=== PATIENT | female | born 1980 | race Caucasian/White ===

== ENCOUNTER 2017-06-11 06:34 | Emergency (ER) | payer MEDICAID, OTHER ==
--- NOTE | 2017-06-11 07:09 | EDM.PDOC ---
ED HPI GENERAL MEDICAL PROBLEM - General Chief Complaint: LOGISTICS LEAD Problem Stated Complaint: D AND C BLEEDING Time Seen by Provider: 06/11/17 06:56 Source of Information: Reports: Patient, RN Notes Reviewed History Limitations: Reports: No Limitations - History of Present Illness INITIAL COMMENTS - FREE TEXT/NARRATIVE: 37-year-old female presents emergency department day complaint of vaginal bleeding, she is a 4 para 2 recently underwent a D&C 2 weeks ago for a miscarrage she thinks she was about 8 week IUP she did have a couple bouts of intermittent bleeding postoperatively but today at approximately 4:00 this morning started having heavy vaginal bleeding with clots has went to 5 or 6 pads feels lightheaded had a couple near syncopal events denies any fevers shortness of breath or chest pain abd Pain Score (Numeric/FACES): 4 - Related Data Allergies Allergy/AdvReac Type Severity Reaction Status Date / Time No Known Allergies Allergy Verified 06/11/17 06:47 Home Meds: Home Meds Pnv with Ca,No.72/Iron/Fa [Pnv Plus Multivit Tab] 1 each PO DAILY 08/02 [History] Hydrocodone/Acetaminophen [Hydrocodon-Acetaminophen 5-325] 1 each PO ASDIRECTED PRN 06/11/17 [History] Past Medical History LOGISTICS LEAD History: Reports: , Spontaneous Other OB/BYN History: G- 4 p-2 - Past Surgical History Female Surgical History: Reports: D&C Other Female Surgeries/Procedures: 05-30-2017 Social & Family History - Tobacco Use Smoking Status *Q: Never Smoker ED ROS GENERAL - Review of Systems Review Of Systems: See Below Constitutional: Denies: Fever, Chills HEENT: Reports: No Symptoms Respiratory: Reports: No Symptoms Cardiovascular: Reports: No Symptoms GI/Abdominal: Reports: No Symptoms : Reports: Irregular Menses Musculoskeletal: Reports: No Symptoms Skin: Reports: No Symptoms Neurological: Reports: No Symptoms ED EXAM, RENAL/ - Physical Exam Exam: See Below Text/Narrative:: General: Female, not in any distress, alert and oriented x3 HEENT: head is atraumatic normocephalic, eyes pupils equal round reactive to light, sclera clear no conjunctivitis appreciated. Ears tympanic membranes clear and dean landmarks and light reflex are present bilaterally canals are clear. Nose no septal deviation, nares are clear, no blood present. Mouth mucosa is moist and pink no erythema or exudate noted in soft palate, tongue is midline uvula is midline, dentition is intact. Neck: Supple no thyromegaly no tracheal deviation. Nodes: Cervical nodes subclavicular nodes nontender no palpable lymphadenopathy noted. Lungs: clear to auscultation bilaterally with symmetrical respirations, no adventitious noise appreciated. CV: Regular rate and rhythm S1 and S2 appreciated no murmurs rubs or gallops noted. Abdomen: Soft, nontender, no palpable masses or organomegaly appreciated, no distention no guarding bowel sounds are present, . Neuro: Cranial nerves II through XII grossly intact Skin: Warm and dry, intact Extremities: No lower extremity edema appreciated, pedal pulse is +2. Vaginal exam presence of nursing staff cervical os was identified is still open active bleeding and clots protruding from the os large amount of clot and blood in the vaginal vault, no tenderness to the exam no fissures or tears noted Course - Vital Signs Last Recorded V/S: Last Vital Signs Temp 97.9 F 06/11/17 06:52 Pulse 83 06/11/17 08:48 Resp 18 06/11/17 08:48 BP 128/71 06/11/17 08:48 Pulse Ox 99 06/11/17 08:48 - Orders/Labs/Meds Orders: Active Orders 24 hr Category Date Time Status Pelvis Non OB Comp [US] Stat Exams 06/11/17 07:12 Taken Lactated Ringers [Ringers, Lactated] 1,000 ml Med 06/11/17 07:15 Active IV ASDIRECTED Medication Orders Lactated Ringer's (Ringers, Lactated) 1,000 mls @ 999 mls/hr IV ASDIRECTED ROLAND Last Admin: 06/11/17 07:13 Dose: 999 mls/hr Labs: Laboratory Tests 06/11/17 06/11/17 06/11/17 Range/Units 07:10 07:10 07:10 WBC 12.5 H (4.5-11.0) K/uL RBC 3.95 (3.30-5.50) M/uL Hgb 11.4 L (12.0-15.0) g/dL Hct 35.0 L (36.0-48.0) % MCV 89 (80-98) fL MCH 29 (27-31) pg MCHC 33 (32-36) % Plt Count 291 (150-400) K/uL Neut % (Auto) 81 H (36-66) % Lymph % (Auto) 12 L (24-44) % [place] % (Auto) 6 (2-6) % Eos % (Auto) 1 L (2-4) % Baso % (Auto) 0 (0-1) % PT 10.3 (9.5-12.0) sec INR 0.96 (0.80-1.20) APTT 25.4 L (27.0-36.0) sec Sodium 136 L (140-148) mmol/L Potassium 4.3 (3.6-5.2) mmol/L Chloride 104 (100-108) mmol/L Carbon Dioxide 25 (21-32) mmol/L Anion Gap 11.3 (5.0-14.0) mmol/L BUN 17 (7-18) mg/dL Creatinine 0.9 (0.6-1.0) mg/dL Est Cr Clr Drug Dosing TNP Estimated GFR (MDRD) > 60 (>60) Glucose 105 (74-106) mg/dL Calcium 8.2 L (8.5-10.1) mg/dL Total Bilirubin 0.4 (0.2-1.0) mg/dL AST 12 L (15-37) U/L ALT 24 (12-78) U/L Alkaline Phosphatase 48 (46-116) U/L Total Protein 6.3 L (6.4-8.2) g/dL Albumin 3.4 (3.4-5.0) g/dL Globulin 2.9 (2.3-3.5) g/dL Albumin/Globulin Ratio 1.2 (1.2-2.2) HCG, Quant (0-6) mIU/mL Urine Color Urine Appearance Urine pH (4.5-8.0) Ur Specific [place] (1.008-1.030) Urine Protein (NEGATIVE) mg/dL Urine Glucose (UA) (NEGATIVE) mg/dL Urine Ketones (NEGATIVE) mg/dL Urine Occult Blood (NEGATIVE) Urine Nitrite (NEGATIVE) Urine Bilirubin (NEGATIVE) Urine Urobilinogen (NORMAL) mg/dL Ur Leukocyte Esterase (NEGATIVE) Urine RBC (0-5) Urine WBC (0-5) Ur Epithelial Cells Amorphous Sediment Urine Bacteria Urine Mucus Urine HCG, Qual 06/11/17 06/11/17 06/11/17 Range/Units 07:10 08:48 08:48 WBC (4.5-11.0) K/uL RBC (3.30-5.50) M/uL Hgb (12.0-15.0) g/dL Hct (36.0-48.0) % MCV (80-98) fL MCH (27-31) pg MCHC (32-36) % Plt Count (150-400) K/uL Neut % (Auto) (36-66) % Lymph % (Auto) (24-44) % [place] % (Auto) (2-6) % Eos % (Auto) (2-4) % Baso % (Auto) (0-1) % PT (9.5-12.0) sec INR (0.80-1.20) APTT (27.0-36.0) sec Sodium (140-148) mmol/L Potassium (3.6-5.2) mmol/L Chloride (100-108) mmol/L Carbon Dioxide (21-32) mmol/L Anion Gap (5.0-14.0) mmol/L BUN (7-18) mg/dL Creatinine (0.6-1.0) mg/dL Est Cr Clr Drug Dosing Estimated GFR (MDRD) (>60) Glucose (74-106) mg/dL Calcium (8.5-10.1) mg/dL Total Bilirubin (0.2-1.0) mg/dL AST (15-37) U/L ALT (12-78) U/L Alkaline Phosphatase (46-116) U/L Total Protein (6.4-8.2) g/dL Albumin (3.4-5.0) g/dL Globulin (2.3-3.5) g/dL Albumin/Globulin Ratio (1.2-2.2) HCG, Quant 1958 H (0-6) mIU/mL Urine Color Red Urine Appearance Slightly cloudy Urine pH 8.0 (4.5-8.0) Ur Specific [place] 1.015 (1.008-1.030) Urine Protein 30 H (NEGATIVE) mg/dL Urine Glucose (UA) Normal (NEGATIVE) mg/dL Urine Ketones Negative (NEGATIVE) mg/dL Urine Occult Blood Large (NEGATIVE) Urine Nitrite Negative (NEGATIVE) Urine Bilirubin Negative (NEGATIVE) Urine Urobilinogen Normal (NORMAL) mg/dL Ur Leukocyte Esterase Small (NEGATIVE) Urine RBC Packed H (0-5) Urine WBC 0-5 (0-5) Ur Epithelial Cells Not seen Amorphous Sediment Not seen Urine Bacteria Not seen Urine Mucus Not seen Urine HCG, Qual Positive H Meds: Medications Generic Name Dose Route Start Last Admin Trade Name Saqib PRN Reason Stop Dose Admin Lactated Ringer's 1,000 mls @ 999 mls/hr 06/11/17 07:15 06/11/17 07:13 Ringers, Lactated IV 999 mls/hr ASDIRECTED ROLAND Administration Departure - Departure Time of Disposition: 09:18 Disposition: DC/Tfer to Acute Hospital 02 Condition: Good Clinical Impression: Vagina bleeding - Discharge Information Referrals: PCP,None [Primary Care Provider] - Forms: ED Department Discharge - My Orders Last 24 Hours: My Active Orders 06/11/17 07:12 Pelvis Non OB Comp [US] Stat 06/11/17 07:15 Lactated Ringers [Ringers, Lactated] 1,000 ml IV ASDIRECTED - Assessment/Plan Last 24 Hours: My Active Orders 06/11/17 07:12 Pelvis Non OB Comp [US] Stat 06/11/17 07:15 Lactated Ringers [Ringers, Lactated] 1,000 ml IV ASDIRECTED Plan: Assessment Acuity = acute Site and laterality = vaginal bleeding post D&C procedure complicated with recent estimate 8 weeks Etiology = unclear etiology Manifestations = lightheadedness Location of injury = Home Lab values = WBC elevated 12.5 consistent leukocytosis hemoglobin low 11.4 consistent with normochromic anemia INR normal at 0.96 beta-hCG elevated at 1958 urinalysis positive hCG and packed red blood cells consistent hematuria ultrasound demonstrates retained products of conception Plan Called and discussed the case with Dr. Ta LOGISTICS LEAD data conversion analyst at [facility] who kindly accepted the patient in transport, she will be transported via EMS ground to IVs are in place she has been given 1 L of fluids This note was dictated using [employer] voice recognition software please call with any questions.
[2017-06-11] MEDS ORDERED: Lactated Ringers 1,000 ML IV SCH (07:15)
[2017-06-11 09:41] VITALS: BP 117/61
== END 2017-06-11 09:50 ==
LOC: JP.ED 06:34
DX: N93.9 Abnormal uterine and vaginal bleeding, unspecified (principal); Z79.899 Other long term (current) drug therapy
CPT/HCPCS: 36415; 76856; 80053; 81001; 81025; 84702; 85025; 85610; 85730; 96360; 99285; J7120; 99284

== ENCOUNTER 2018-11-22 18:35 | Emergency (ER) | payer MEDICAID ==
[2018-11-22] MEDS ORDERED: Sodium Chloride 0.9% 10 ML Syringe FLUSH PRN ×2 (19:54)
[2018-11-22] MEDS ORDERED: Ketorolac 60 MG/2 ML SDV IM ONE (20:38)
--- NOTE | 2018-11-22 22:27 | CRLCT ---
INDICATION: Abdominal pain TECHNIQUE: CT abdomen and pelvis without contrast. COMPARISON: Ob ultrasound performed the same date FINDINGS: Lower chest: Small right pleural effusion. Liver: Unremarkable. Spleen: Unremarkable. Pancreas: Unremarkable. Gallbladder and bile ducts: Unremarkable. Adrenal glands: Unremarkable. Kidneys: Unremarkable. GI tract: Unremarkable. Vascular structures: Unremarkable. Lymph nodes: Unremarkable. Miscellaneous: Small fat containing umbilical hernia. Pelvic Organs: 6.5 x 7.3 by 7.4 cm heterogeneous mass in the left adnexa. Moderate amount of hemoperitoneum. Bones: Unremarkable for age. IMPRESSION: Findings highly suspicious for a ruptured left-sided ectopic . Moderate amount of hemoperitoneum. These findings were discussed with Dr. Gilliland at 10:25 p.m. on November 22, 2018. Small right pleural effusion. Please note that all CT scans at this facility use dose modulation, iterative reconstruction, and/or weight-based dosing when appropriate to reduce radiation dose to as low as reasonably achievable. Dictated by Lydia Mcintosh MD @ Nov 22 2018 10:13PM Signed by Dr. Lydia Mcintosh @ Nov 22 2018 10:24PM
--- NOTE | 2018-11-22 22:29 | CRLUS ---
INDICATION: Pelvic pain, vaginal bleeding, 10 weeks 6 days TECHNIQUE: Ultrasound OB pelvis transabdominal. Real-time dean-scale imaging of the pelvis was performed. COMPARISON: None FINDINGS: No intrauterine is identified. There is a heterogeneous mass in the left adnexa measuring 10.1 x 7.7 x 5.0 cm. There is moderate amount of fluid in the lower abdomen and pelvis. The uterus measures 10.5 x 5.8 x 4.7. The ovaries are normal in size. Simple appearing cysts are seen on both ovaries. IMPRESSION: No intrauterine identified. Heterogeneous mass in the left adnexa with moderate amount of fluid in the abdomen and pelvis. Findings are highly concerning for a ruptured left-sided ectopic . These findings were discussed with Dr. Gilliland at 10:25 p.m. on November 22, 2018. Dictated by Lydia Mcintosh MD @ Nov 22 2018 10:20PM Signed by Dr. Lydia Mcintosh @ Nov 22 2018 10:28PM
--- NOTE | 2018-11-22 22:43 | EDM.PDOC ---
ED HPI GENERAL MEDICAL PROBLEM - General Chief Complaint: Abdominal Pain Stated Complaint: ABDOMINAL PAIN Time Seen by Provider: 11/22/18 19:45 Source of Information: Reports: Patient History Limitations: Reports: No Limitations - History of Present Illness INITIAL COMMENTS - FREE TEXT/NARRATIVE: 38-year-old female is estimated to be 6 weeks . She has been receiving her care from [facility] in [place]. Her quantitative hCGs have been erratic and there is been some question about a possible ectopic . Her ultrasound was done on November 05 which was inconclusive and did not see any intraoral or extrauterine . She started having cramping in her lower abdomen about 3 PM this afternoon and later became more severe and mainly on the left side. She took hydrocortisone for her without much relief. She is presently G7, P2, SAB 5. No GI or symptoms. No prior abdominal surgeries. Blood type is A+. e left lower abd Pain Score (Numeric/FACES): 9 - Related Data Allergies Allergy/AdvReac Type Severity Reaction Status Date / Time No Known Allergies Allergy Verified 11/22/18 19:14 Home Meds: Home Meds Pnv with Ca,No.72/Iron/Fa [Pnv Plus Multivit Tab] 1 each PO DAILY 08/02 [History] Hydrocodone/Acetaminophen [Hydrocodon-Acetaminophen 5-325] 1 each PO ASDIRECTED PRN 06/11/17 [History] Past Medical History HEENT History: Reports: Impaired Vision BOAT LABORER History: Reports: , Spontaneous , Other (See Below) Other BOAT LABORER History: G- 4 p-2. partial molar - Infectious Disease History Infectious Disease History: Reports: Chicken Pox - Past Surgical History Female Surgical History: Reports: D&C Other Female Surgeries/Procedures: 05-30-2017 Social & Family History - Tobacco Use Smoking Status *Q: Never Smoker - Caffeine Use Caffeine Use: Reports: Coffee - Recreational Drug Use Recreational Drug Use: No ED ROS GENERAL - Review of Systems Review Of Systems: See Below Constitutional: Denies: Fever, Chills, Weakness HEENT: Reports: No Symptoms Respiratory: Reports: No Symptoms Cardiovascular: Reports: No Symptoms GI/Abdominal: Reports: Abdominal Pain, Distension. Denies: Black Stool, Bloody Stool, Nausea : Denies: Discharge, Flank Pain, Frequency, Hematuria, Urgency Musculoskeletal: Reports: No Symptoms ED EXAM, GI/ABD - Physical Exam Exam: See Below Exam Limited By: No Limitations General Appearance: Alert, Mild Distress Respiratory/Chest: No Respiratory Distress, Lungs Clear, Normal Breath Sounds Cardiovascular: Normal Peripheral Pulses, Regular Rate, Rhythm, No Edema GI/Abdominal Exam: Distended, Tender, Other (Generalized tenderness of the abdomen maximal in the left lower quadrant.). No: Guarding, Rigid, Rebound (Female) Exam: Adnexal Tenderness. No: Vaginal Bleeding Course - Vital Signs Last Recorded V/S: Last Vital Signs Temp 37.1 C 11/23/18 00:01 Pulse 91 11/23/18 00:01 Resp 15 11/23/18 00:01 BP 133/65 11/23/18 00:01 Pulse Ox 95 11/23/18 00:01 - Orders/Labs/Meds Orders: Active Orders 24 hr Category Date Time Status Peripheral IV Care [RC] . DIRECTED Care 11/22/18 19:58 Active PATIENT RETYPE [BBK] Stat Lab 11/22/18 20:23 Results RED BLOOD CELLS LP [BBK] Stat Lab 11/22/18 20:23 Results TYPE AND SCREEN [BBK] Stat Lab 11/22/18 20:23 Results Peripheral IV Insertion Adult [OM.PC] Urgent Oth 11/22/18 19:54 Ordered Labs: Laboratory Tests 11/22/18 11/22/18 11/22/18 Range/Units 20:03 20:03 20:23 WBC 19.4 H (4.5-11.0) K/uL RBC 3.86 (3.30-5.50) M/uL Hgb 11.2 L (12.0-15.0) g/dL Hct 33.9 L (36.0-48.0) % MCV 88 (80-98) fL MCH 29 (27-31) pg MCHC 33 (32-36) % Plt Count 337 (150-400) K/uL Neut % (Auto) 86 H (36-66) % Lymph % (Auto) 9 L (24-44) % [place] % (Auto) 4 (2-6) % Eos % (Auto) 0 L (2-4) % Baso % (Auto) 0 (0-1) % Sodium 139 L (140-148) mmol/L Potassium 3.9 (3.6-5.2) mmol/L Chloride 105 (100-108) mmol/L Carbon Dioxide 24 (21-32) mmol/L Anion Gap 13.9 (5.0-14.0) mmol/L BUN 17 (7-18) mg/dL Creatinine 1.0 (0.6-1.0) mg/dL Est Cr Clr Drug Dosing 72.11 mL/min Estimated GFR (MDRD) > 60 (>60) Glucose 155 H (74-106) mg/dL Calcium 8.4 L (8.5-10.1) mg/dL Total Bilirubin 0.3 (0.2-1.0) mg/dL AST 15 (15-37) U/L ALT 25 (12-78) U/L Alkaline Phosphatase 36 L (46-116) U/L Total Protein 6.1 L (6.4-8.2) g/dL Albumin 3.5 (3.4-5.0) g/dL Globulin 2.6 (2.3-3.5) g/dL Albumin/Globulin Ratio 1.3 (1.2-2.2) Blood Type A POSITIVE Gel Antibody Screen Negative Crossmatch See Detail Meds: Medications Discontinued Medications Generic Name Dose Route Start Last Admin Trade Name Freq PRN Reason Stop Dose Admin Hydromorphone HCl 1 mg 11/22/18 22:55 11/22/18 23:54 Dilaudid IM 11/22/18 22:56 Not Given ONETIME ONE Hydromorphone HCl Confirm 11/22/18 22:57 11/22/18 23:01 Dilaudid Administered 11/22/18 22:58 Not Given Dose 1 mg .ROUTE .STK-MED ONE Hydromorphone HCl Confirm 11/22/18 23:39 11/23/18 00:05 Dilaudid Administered 11/22/18 23:40 Not Given Dose 0.5 mg .ROUTE .STK-MED ONE Hydromorphone HCl 1 mg 11/23/18 00:03 11/22/18 23:05 Dilaudid IVPUSH 11/23/18 00:04 1 mg ONETIME ONE Administration Hydromorphone HCl 0.5 mg 11/23/18 00:04 11/22/18 23:40 Dilaudid IVPUSH 11/23/18 00:05 0.5 mg ONETIME ONE Administration Ketorolac Tromethamine 60 mg 11/22/18 20:38 11/22/18 20:44 Toradol IM 11/22/18 20:39 60 mg ONETIME ONE Administration Morphine Sulfate 4 mg 11/22/18 22:44 Morphine IM 11/22/18 22:45 ONETIME ONE Morphine Sulfate Confirm 11/22/18 22:45 11/22/18 22:56 Morphine Administered 11/22/18 22:46 Not Given Dose 4 mg .ROUTE .STK-MED ONE Ondansetron HCl 4 mg 11/22/18 23:17 11/22/18 23:54 Zofran IVPUSH 11/22/18 23:18 4 mg ONETIME ONE Administration Ondansetron HCl Confirm 11/22/18 23:17 11/22/18 23:54 Zofran Administered 11/22/18 23:18 Not Given Dose 4 mg .ROUTE .STK-MED ONE Sodium Chloride 10 ml 11/22/18 19:54 11/22/18 23:43 Saline Flush FLUSH 10 ml ASDIRECTED PRN Administration Keep Vein Open Sodium Chloride 10 ml 11/22/18 19:54 11/22/18 23:07 Saline Flush FLUSH 10 ml ASDIRECTED PRN Administration Keep Vein Open - Radiology Interpretation Free Text/Narrative:: Ultrasound showed free fluid around the uterus and adnexa as but could not identify a source. - Re-Assessments/Exams Free Text/Narrative Re-Assessment/Exam: 11/23/18 03:57 IV was started with normal saline for hydration. She was given fentanyl for pain. She was also given one unit of blood. I contacted Dr. Guerra BOAT LABORER and [facility] who has accepted transfer of this patient. Departure - Departure Time of Disposition: 23:50 Disposition: DC/Tfer to [facility] 02 Clinical Impression: Ruptured left tubal ectopic causing hemoperitoneum - Discharge Information *PRESCRIPTION DRUG MONITORING PROGRAM REVIEWED*: No *COPY OF PRESCRIPTION DRUG MONITORING REPORT IN PATIENT ARMINDA: No Referrals: Beverley Bhandari MD [Primary Care Provider] - Forms: ED Department Discharge Care Plan Goals: Patient will be transferred by ambulance to [facility] in [place]. - Problem List & Annotations (1) Ruptured left tubal ectopic causing hemoperitoneum SNOMED Code(s): 05243421 Code(s): O00.102 - LEFT TUBAL WITHOUT INTRAUTERINE ; K66.1 - HEMOPERITONEUM Status: Acute - My Orders Last 24 Hours: My Active Orders 11/22/18 19:54 Peripheral IV Insertion Adult [OM.PC] Urgent 11/22/18 19:58 Peripheral IV Care [RC] . DIRECTED 11/22/18 20:23 PATIENT RETYPE [BBK] Stat RED BLOOD CELLS LP [BBK] Stat TYPE AND SCREEN [BBK] Stat - Assessment/Plan Last 24 Hours: My Active Orders 11/22/18 19:54 Peripheral IV Insertion Adult [OM.PC] Urgent 11/22/18 19:58 Peripheral IV Care [RC] . DIRECTED 11/22/18 20:23 PATIENT RETYPE [BBK] Stat RED BLOOD CELLS LP [BBK] Stat TYPE AND SCREEN [BBK] Stat
[2018-11-22] MEDS ORDERED: Morphine 4 MG/ML Syringe IM ONE (22:44)
[2018-11-22] MEDS ORDERED: Morphine 4 MG/ML Syringe ONE (22:45)
[2018-11-22] MEDS ORDERED: HYDROmorphone 1 MG/ML Syringe ONE (22:57)
[2018-11-22] MEDS: HYDROmorphone 1 MG/ML Syringe IM ONE ×2 (23:00→23:54)
[2018-11-22] MEDS ORDERED: Ondansetron 4 MG/2 ML SDV IVPUSH ONE (23:17)
[2018-11-22] MEDS ORDERED: Ondansetron 4 MG/2 ML SDV ONE (23:17)
[2018-11-22] MEDS ORDERED: HYDROmorphone 0.5 MG/0.5 ML Syringe ONE (23:39)
[2018-11-23 00:03] VITALS: BP 133/65
[2018-11-23] MEDS ORDERED: HYDROmorphone 1 MG/ML Syringe IVPUSH ONE (00:03)
[2018-11-23] MEDS ORDERED: HYDROmorphone 0.5 MG/0.5 ML Syringe IVPUSH ONE (00:04)
== END 2018-11-22 23:50 ==
LOC: JP.ED 18:35
DX: O09.93 Supervision of high risk pregnancy, unspecified, third trimester (principal); O00.102 Left tubal pregnancy without intrauterine pregnancy; O99.611 Diseases of the digestive system complicating pregnancy, first trimester; K66.1 Hemoperitoneum; Z3A.01 Less than 8 weeks gestation of pregnancy; Z79.899 Other long term (current) drug therapy
CPT/HCPCS: 36415; 36430; 74150; 76801; 80053; 85025; 86850; 86900; 86901; 86920; 86922; 96372; 96374; 96375; 96376; 99285; J1170; J1885; J2405; P9016

== ENCOUNTER 2022-11-21 11:26 | Emergency (ER) | payer OTHER, MEDICAID ==
[2022-11-21 12:10] LABS: MEAN CORPUSCULAR HEMOGLOBIN 29.9 pg (31.6-35.5); MEAN CORPUSCULAR HGB CONC 33.3 g/dL (31.6-35.5); MEAN CORPUSCULAR VOLUME 89.7 fL (81.4-99.0); RED BLOOD CELL COUNT 4.35 M/uL (3.77-5.24); WHITE BLOOD CELL COUNT,WBC 5.1 K/uL (3.2-11.0)
[2022-11-21 12:28] LABS: PROTHROMBIN TIME 10.6 sec (9.2-10.6)
[2022-11-21 13:45] VITALS: BP 128/67; PULSE 74
== END 2022-11-21 13:40 | disposition home or self-care (01) ==
LOC: JP.ED 11:26
DX: M62.838 Other muscle spasm (principal)
CPT/HCPCS: 36415; 85027; 85379; 85610; 99283